=== PATIENT | female | born 1950 | race Hispanic/Latino ===

== ENCOUNTER → 2021-06-01 | Outpatient (CLI) | payer BC, OTHER | END | disposition home or self-care (01) | LOC: RAH 15:43 | PROVIDERS: ATTEND Internal Medicine | DX: J44.9 Chronic obstructive pulmonary disease, unspecified (principal); J84.9 Interstitial pulmonary disease, unspecified | CPT/HCPCS: 71046 ==

== ENCOUNTER → 2023-10-20 | Outpatient (CLI) | payer OTHER | END | disposition home or self-care (01) | LOC: RAH 08:52 | PROVIDERS: ATTEND Internal Medicine | DX: K43.9 Ventral hernia without obstruction or gangrene (principal); K76.0 Fatty (change of) liver, not elsewhere classified; R68.84 Jaw pain; K80.20 Calculus of gallbladder without cholecystitis without obstruction | CPT/HCPCS: 70330; 76700 ==

== ENCOUNTER 2024-02-24 05:43 | Day surgery (SDC) | payer OTHER ==
[2024-02-19 11:30] VITALS: BP 221/97; PULSE 71; RESP 18
[2024-02-19 11:32] LABS: BASOPHILS # (AUTO) 0.07 K/uL (0.00-0.20); BASOPHILS % (AUTO) 0.8 % (0.0-5.0); CREATININE 0.9 mg/dL (0.5-1.0); EOSINOPHILS # (AUTO) 0.12 K/uL (0.00-0.70); EOSINOPHILS % (AUTO) 1.3 % (0.0-8.0); HEMATOCRIT 45.4 % (36-48); IMMATURE GRANULOCYTE ABSOLUTE 0.03 K/uL (0-1); LYMPHOCYTES # (AUTO) 3.3 K/uL (1.0-4.8); LYMPHOCYTES % (AUTO) 36.6 % (21.0-51.0); MEAN CORPUSCULAR HEMOGLOBIN 29.7 pg (27.0-33.0); MEAN CORPUSCULAR HGB CONC 31.7 g/dL (32.0-36.0); MEAN CORPUSCULAR VOLUME 93.6 fL (79-99); MONOCYTES # (AUTO) 0.6 K/uL (0.1-1.0); MONOCYTES % (AUTO) 6.4 % (3.0-13.0); NEUTROPHILS # (AUTO) 4.9 K/uL (1.8-7.7); NEUTROPHILS % (AUTO) 54.6 % (40.0-77.0); PLATELET COUNT (AUTO) 232 K/uL (130-400); POTASSIUM 4.4 mmol/L (3.5-5.1); RED BLOOD CELL COUNT(AUTO) 4.85 MIL/uL (4.00-5.50); RED CELL DISTRIBUTION WIDTH 12.7 % (11.0-15.5)
[2024-02-19 12:04] LABS: INR 1.03 (0.85-1.15); PROTHROMBIN TIME 11.1 SEC (9.6-11.6)
[2024-02-19 12:06] LABS: PARTIAL THROMBOPLASTIN TIME 29.8 SEC (26.3-35.5)
[~2024-02-24] VITALS: Ht 162.6 cm; Wt 123.9 kg
[2024-02-24] VITALS (18 sets, daily range): BP systolic 72–167; BP diastolic 49–84; PULSE 66–77; RESP 15–20
[~2024-02-24 05:43] MED LIST: FLUT1BLS15 IH; LOSA25TA41 PO
[2024-02-24] MEDS ORDERED: CEFAZOLIN SODIUM 1 GM VIAL ONE (06:26)
[2024-02-24] MEDS ORDERED: CEFAZOLIN SODIUM 2 GM VIAL ONE (06:26)
[2024-02-24] MEDS ORDERED: BUPIVACAINE/PF 0.25% 30ML VIAL IJ ONE (07:19)
[2024-02-24] MEDS ORDERED: BUPIVACAINE/PF 0.5% 30ML VIAL ONE (07:21)
[2024-02-24] MEDS ORDERED: EPINEPHRINE PF 1MG (1:1,000) 1 MG/ML AMP ONE (07:22)
[2024-02-24] MEDS ORDERED: ROPIVACAINE 0.5% 5MG/ML 30ML ONE (07:33)
[2024-02-24] MEDS: BUPIVACAINE/EPI/PF 0.5% 30ML VIAL IJ ONE (08:34)
[2024-02-24] MEDS ORDERED: SUGAMMADEX SODIUM 200 MG/2 ML VIAL IV ONE (08:51)
[2024-02-24] MEDS ORDERED: TRAM50TA4 PO (09:11)
[2024-02-24] MEDS ORDERED: GABA-529 PO (09:11)
[2024-02-24] MEDS ORDERED: DOCU-116 PO (09:11)
[2024-02-24] MEDS ORDERED: METH-662 PO (09:11)
[2024-02-24] MEDS: KETOROLAC 30MG VIAL (30MG/ML) ONE (09:38)
[2024-02-24] MEDS: MEPERIDINE-PF 25 MG/ML SYG ONE ×2 (09:38→10:25)
[2024-02-24] MEDS: 0.9%NACL 1000ML 1,000 ML IV ONE (09:53)
[2024-02-24] MEDS: ACETAMINOPHEN 1,000 MG/100 ML VIAL IV ONE (10:25)
== END 2024-02-24 11:20 | disposition home or self-care (01) ==
LOC: DAH 05:43
PROVIDERS: ATTEND Surgery
DX: K43.6 Other and unspecified ventral hernia with obstruction, without gangrene (principal); E11.22 Type 2 diabetes mellitus with diabetic chronic kidney disease; I12.9 Hypertensive chronic kidney disease with stage 1 through stage 4 chronic kidney disease, or unspecified chronic kidney disease; N18.2 Chronic kidney disease, stage 2 (mild); J44.9 Chronic obstructive pulmonary disease, unspecified; E03.9 Hypothyroidism, unspecified; M19.90 Unspecified osteoarthritis, unspecified site; E66.01 Morbid (severe) obesity due to excess calories; E11.51 Type 2 diabetes mellitus with diabetic peripheral angiopathy without gangrene; I73.9 Peripheral vascular disease, unspecified; K21.9 Gastro-esophageal reflux disease without esophagitis; Z90.49 Acquired absence of other specified parts of digestive tract; Z90.710 Acquired absence of both cervix and uterus; Z98.891 History of uterine scar from previous surgery; Z98.890 Other specified postprocedural states; Z79.899 Other long term (current) drug therapy; Z83.3 Family history of diabetes mellitus
CPT/HCPCS: 80048; 85025; 85610; 85730; 36415; 93005; 49596; 64488; 82948 ×2; A6260; A4600; C1874; A4663; J7030 ×3; J0690 ×3; J0171; J1885; J0665; J2175 ×2; J2795; J3490; G0168; A4649 ×3; A4930 ×3; A4215; A4223; A4213; A4222; A4221

== ENCOUNTER → 2024-07-23 | Outpatient (CLI) | payer OTHER ==
[~2024-07-23] MED LIST changes: +DOCU-116 PO; +GABA-529 PO; +METH-662 PO; +TRAM50TA4 PO
--- NOTE | 2024-07-23 11:54 | HMCIMG ---
US ABDOMINAL COMPLETE REASON: unspecified abd pain COMPARISON: 04/14/2024 FINDINGS: There is moderate to marked hepatic steatosis. There are no focal mass lesions. There is enlarged at 20 cm.There are stones present within an otherwise normal-appearing gallbladder, there is no wall thickening or edema. Kidneys appear normal in size and appearance. There is no evidence of mass, stone or hydronephrosis. Spleen and common duct appear normal. Aorta and inferior vena cava appear normal. The pancreas appears normal as well. There is a fluid collection in the lower anterior abdominal midline. This measures 3.7 x 4.5 x 8.6 cm. Appearance is most consistent with seroma. This appears markedly decreased in size compared to the fluid collection seen on previous ultrasound 04/14/2024. IMPRESSION: 1. Seroma in the anterior abdominal midline, 3.7 x 4.5 cm axial dimension and 8.6 cm superior to inferior, markedly decreased in size compared to prior study. 2. Moderate hepatic steatosis. 3. Cholelithiasis without evidence of acute cholecystitis.
== END | disposition home or self-care (01) ==
LOC: RAH 10:08
PROVIDERS: ATTEND Internal Medicine
DX: K76.0 Fatty (change of) liver, not elsewhere classified (principal); K80.20 Calculus of gallbladder without cholecystitis without obstruction; R10.9 Unspecified abdominal pain
CPT/HCPCS: 76700

== ENCOUNTER → 2024-09-23 | Outpatient (CLI) | payer OTHER ==
--- NOTE | 2024-09-23 16:09 | HMCIMG ---
DEXA BONE DENSITY SURVEY HISTORY: Menopause COMPARISON: None FINDINGS: Bone densitometry study was performed. Bone mineral density of the lumbar spine is 1.001 gram per centimeter square which corresponds to a T score of 0.3 and a Z score of 1.9. Bone mineral density of the left hip is 1.124 grams per centimeter square which corresponds to a T score of 0.7 and a Z score of 2.9. IMPRESSION: 1. Normal bone mineral density of the lumbar spine and left hip.
== END | disposition home or self-care (01) ==
LOC: RAH 14:12
PROVIDERS: ATTEND Internal Medicine
DX: N95.9 Unspecified menopausal and perimenopausal disorder (principal)
CPT/HCPCS: 77080